=== PATIENT | female | born 1995 | race Caucasian/White ===

== ENCOUNTER 2019-04-17 08:58 | Emergency (ER) | payer OTHER ==
[~2019-04-17] VITALS: Ht 165.1 cm; Wt 60.1 kg
--- NOTE | 2019-04-17 09:53 | RAD ---
EXAM: CHEST PA LATERAL INDICATION: Productive cough. TECHNIQUE: PA and lateral views COMPARISON: None FINDINGS: The heart size is normal. The great vessels appear unremarkable. There is no hilar or mediastinal mass. The lungs show ill-defined reticular density in the left lung base. There is no pleural effusion or pneumothorax. There are no significant osseous abnormalities. IMPRESSION: Findings suspicious for early left lower lobe pneumonia. Electronically signed by: Jose M Dowling MD (04/17/2019 9:50 AM) [place] [id number]
--- NOTE | 2019-04-17 09:55 | PHYS DOC ---
Past History Past Medical History: Anemia Past Surgical History: , Other Additional Past Surgical Histo: D&C x2 Alcohol Use: None Drug Use: None Adult General Chief Complaint Chief Complaint: COUGH HPI HPI Patient is a 23 year old female who presents with productive cough over the past 2-3 days and is now associated with left side pain. Her pain does seem to be associated with cough. She denies fever sweats or chills. She denies nasal congestion. She has no other associated symptoms. She has no known exacerbating or alleviating factors. She is and is currently breast-feeding. Review of Systems Review of Systems Constitutional: Denies fever or chills [] Eyes: Denies change in visual acuity, redness, or eye pain [] HENT: Denies nasal congestion or sore throat [] Respiratory: Negative except history of present illness Cardiovascular: No additional information not addressed in HPI [] GI: Denies abdominal pain, nausea, vomiting, bloody stools or diarrhea [] : Denies dysuria or hematuria [] Musculoskeletal: Denies back pain or joint pain [] Integument: Denies rash or skin lesions [] Neurologic: Denies headache, focal weakness or sensory changes [] Endocrine: Denies polyuria or polydipsia [] All other systems were reviewed and found to be within normal limits, except as documented in this note. Family History Family History No pertinent family medical history was reported Current Medications Current Medications Current medications were reviewed Allergies Allergies Allergies Coded Allergies Type Severity Reaction Last Updated Verified No Known Drug Allergies 04/17/19 No Physical Exam Physical Exam Constitutional: Well developed, well nourished, no acute distress, non-toxic appearance. [] HENT: Normocephalic, atraumatic, bilateral external ears normal, oropharynx moist, no oral exudates, nose normal. [] Eyes: EOMI, conjunctiva normal, no discharge. [] Neck: Normal range of motion, no tenderness, supple, no stridor. [] Cardiovascular:Heart rate regular rhythm Lungs & Thorax: Bilateral breath sounds clear to auscultation []minimal rhonchi noted on the right base Abdomen: Bowel sounds normal, soft, no tenderness, no masses, no pulsatile masses. [] Skin: Warm, dry, no erythema, no rash. [] Extremities: No tenderness, no cyanosis, no clubbing, ROM intact, no edema. [] Neurologic: Alert and oriented X 3, normal motor function, normal sensory function, no focal deficits noted. [] Psychologic: Affect normal, judgement normal, mood normal. [] Current Patient Data Vital Signs Vital Signs Date Time Temp Pulse Resp B/P (MAP) Pulse Ox O2 Delivery O2 Flow Rate FiO2 04/17/19 09:11 98.3 96 18 96 Room Air EKG EKG [] Radiology/Procedures Radiology/Procedures Chest x-ray Impressions: Signs of early left lower lobe pneumonia Course & Med Decision Making Course & Med Decision Making Pertinent Labs and Imaging studies reviewed. (See chart for details) [] Dragon Disclaimer Dragon Disclaimer This electronic medical record was generated, in whole or in part, using a voice recognition dictation system. Departure Departure: Disposition: HOME, SELF-CARE Condition: STABLE Referrals: PCP,UNKNOWN (PCP) Patient Instructions: Pneumonia, Adult Additional Instructions: Kenyatta was seen in the emergency department for cough, no emergency medical condition was found on history physical exam. She did have a chest x-ray that showed signs of early pneumonia. She was given a prescription for antibiotics and an inhaled steroids. She is advised to return to the emergency room if she develops new or worsening symptoms. She was advised follow-up with her primary care doctor as needed for further management. Scripts Amoxicillin (AMOXICILLIN) 500 Mg Capsule 2 CAP PO TID for CAP for 7 Days, #42 CAP Prov: TEAGAN AYALA MD 04/17/19 Fluticasone Propionate (FLOVENT 110MCG HFA) 12 Gm Aer.w.adap 2 PUFF IH BID for bronchitis for 7 Days, #1 INHALER 2 Refills Prov: TEAGAN AYALA MD 04/17/19 TEAGAN AYALA MD Apr 17, 2019 09:55
[2019-04-17] MEDS ORDERED: FLUT12AE IH (09:58)
[2019-04-17] MEDS ORDERED: AMOX500C PO (10:09)
[2019-04-17 10:53] VITALS: BP 114/66
== END 2019-04-17 10:39 | disposition home or self-care (01) ==
LOC: ER 08:58
DX: R07.81 Pleurodynia (principal); R05 Cough; D64.9 Anemia, unspecified
CPT/HCPCS: 71046; 99284